=== PATIENT | male | born 1950 | race Caucasian/White ===

== ENCOUNTER 2018-08-18 22:23 | Emergency (ER) | payer BC ==
[2018-08-18] MEDS ORDERED: Albuterol/Ipratropium Neb 3 ML AERS HHN ONE ×2 (22:55→23:03)
--- NOTE | 2018-08-18 23:01 | ED Physician Chart ---
ED Chief Complaint/HPI - Patient Information Date Seen:: 08/18/18 Time Seen:: 22:45 Chief Complaint:: cough History of Present Illness:: Condition developed nonproductive cough earlier today. He's had chest congestion for about 2 months. No fever. Shortness of breath started about 1 hour ago. Patient had a 5 hour flight from [place] [employer] 6 days ago. Patient denies any leg or thigh pain. Patient receive influenza vaccination this season. Allergies:: Allergies Allergy/AdvReac Type Severity Reaction Status Date / Time No Known Allergies Allergy Verified 08/18/18 22:33 Vitals:: Vital Signs - 8 hr 08/18/18 22:35 Temp 97.3 F HR 89 RR 19 BP 135/74 O2 Sat % 95 Historian:: Patient ED Review of Systems - Review of Systems General/Constitutional: No fever, No chills, No weight loss, No weakness, No diaphoresis, No edema, No loss of appetite Skin: No skin lesions, No rash, No bruising Head: No headache, No light-headedness Eyes: No loss of vision, No pain, No diplopia ENT: No earache, No nasal drainage, No sore throat, No tinnitus Neck: No neck pain, No swelling, No thyromegaly, No stiffness, No mass noted Cardio Vascular: No chest pain, No palpitations, No PND, No orthopnea, No edema Pulmonary: Cough, No sputum, No wheezing GI: No nausea, No vomiting, No diarrhea, No pain, No melena, No hematochezia, No constipation, No hematemesis G/U: No dysuria, No frequency, No hematuria Musculoskeletal: No bone or joint pain, No back pain, No muscle pain Endocrine: No polyuria, No polydipsia Psychiatric: No prior psych history, No depression, No anxiety, No suicidal ideation Hematopoietic: No bruising, No lymphadenopathy Allergic/Immuno: No urticaria, No angioedema Neurological: No syncope, No focal symptoms, No weakness, No paresthesia, No headache, No seizure, No dizziness, No confusion, No vertigo ED Past Medical History - Past Medical History Past Medical History: No significant medical hx Family History: None Social History: Alcohol, Other (quit smoking 20 years ago; occasional alcohol consumption) Surgical History: None Psychiatricy History: None Medication: Reviewed Family Medical History - Family Member Daughter Living Status: Still Living ED Physical Exam - Physical Examination General/Constitutional: Awake, Well-developed, well-nourished, Alert, No distress, GCS 15, Non-toxic appearing, Ambulatory Head: Atraumatic Eyes: Lids, conjuctiva normal, PERRL Skin: Nl inspection, No rash ENMT: External ears, nose nl, Nasal exam nl, Lips, teeth, gums nl, Oropharynx nl , Tonsils nl Other ENMT comments:: Left tympanic membrane clear; right ceruminosis Neck: No nuchal rigidity, No bruit, No mass Respiratory: Nl effort/Exclusion, Clear to Auscultation, No Wheeze/Rhonchi/Rales Cardio Vascular: RRR, No murmur, gallop, rubs, NL S1 S2 GI: No tenderness/rebounding/guarding, No organomegaly, No hernia, Normal BS's, Nondistended, No mass/bruits, No McBurney tenderness : No CVA tenderness Extremities: Normal digits & nails Neuro/Psych: No focal deficits ED Labs/Radiology/EKG Results - Lab Results Results: Laboratory Results WBC 12.4 Th/cmm (4.8-10.8) H 08/19/18 00:20 RBC 5.25 Mil/cmm (3.80-5.80) 08/19/18 00:20 Hgb 16.4 gm/dL (12-16) 08/19/18 00:20 Hct 48.4 % (41.0-60) 08/19/18 00:20 MCV 92.2 fl (80-99) 08/19/18 00:20 MCH 31.2 pg (27.0-31.0) H 08/19/18 00:20 MCHC Differential 33.9 pg (28.0-36.0) 08/19/18 00:20 RDW 12.8 % (11.5-20.0) 08/19/18 00:20 Plt Count 228 Th/cmm (150-400) 08/19/18 00:20 MPV 8.0 fl 08/19/18 00:20 Neutrophils % 68.9 % (40.0-80.0) 08/19/18 00:20 Lymphocytes % 19.3 % (20.0-50.0) L 08/19/18 00:20 Monocytes % 8.9 % (2.0-10.0) 08/19/18 00:20 Eosinophils % 2.4 % (0.0-5.0) 08/19/18 00:20 Basophils % 0.5 % (0.0-2.0) 08/19/18 00:20 PT 9.9 SECONDS (9.5-11.5) 08/19/18 00:20 INR 0.95 (0.5-1.4) 08/19/18 00:20 PTT (Actin FS) 29.3 SECONDS (26.0-38.0) 08/19/18 00:20 Sodium 139 mEq/L (136-145) 08/19/18 00:20 Potassium 4.5 mEq/L (3.5-5.1) 08/19/18 00:20 Chloride 105 mEq/L (98-107) 08/19/18 00:20 Carbon Dioxide 23.8 mEq/L (21.0-31.0) 08/19/18 00:20 Anion Gap 14.7 (7.0-16.0) 08/19/18 00:20 BUN 22 mg/dL (7-25) 08/19/18 00:20 Creatinine 1.1 mg/dL (0.7-1.3) 08/19/18 00:20 Est GFR ( Amer) > 60.0 ml/min (>90) 08/19/18 00:20 Est GFR (Non-Af Amer) > 60.0 ml/min 08/19/18 00:20 BUN/Creatinine Ratio 20.0 08/19/18 00:20 Glucose 110 mg/dL (70-105) H 08/19/18 00:20 Calcium 9.4 mg/dL (8.6-10.3) 08/19/18 00:20 Troponin I 0.01 ng/mL (0.01-0.05) 08/19/18 00:20 Influenza A (Rapid) NEG FOR INF A 08/18/18 23:30 Influenza B (Rapid) NEG FOR INF B 08/18/18 23:30 - Radiology Results Results: Chest x-ray normal - EKG Interpretations Rate & Rhythm: normal sinus rhythm with a rate of 87 Stollings: left Comments:: Left bundle-branch block ED Assessment - Assessment General Assessment: Auscultation of the chest at about 0015 ED Septic Shock - . Is Septic Shock (SBP<90, OR Lactate>4 mmol\L) present?: No - <6hrs of presentation: Vital Signs: Vital Signs - 8 hr 08/18/18 22:35 Temp 97.3 F HR 89 RR 19 BP 135/74 O2 Sat % 95 ED Reassessment (Disposition) - Reassessment Reassessment:: CT angiogram of the chest showed no evidence of pulmonary embolus. 9 mm pulmonary nodule noted within the superior aspect of the right lower lobe which needs follow-up Reassessment Condition:: Improved - Diagnosis Diagnosis:: Acute viral bronchitis; viral syndrome - Aftercare/Follow up Instructions Aftercare/Follow-Up Instructions:: Refer to Discharge Instructions - Patient Disposition Discharge/Transfer:: Home Condition at Disposition:: Stable, Improved
[2018-08-19 00:14] LABS: INF A SCREEN NEG FOR INF A; INF B SCREEN NEG FOR INF B
[2018-08-19 00:28] LABS: % BASOPHILS 0.5 % (0.0-2.0); % EOSINOPHILS 2.4 % (0.0-5.0); % LYMPHOCYTES 19.3 % (20.0-50.0); % MONOCYTES 8.9 % (2.0-10.0); % NEUTROPHILS 68.9 % (40.0-80.0); BASOPHILE ABSOLUTE 0.1 Th/cumm (0-0.2); EOSINOPHILE ABSOLUTE 0.3 Th/cmm (0.1-0.4); HEMATOCRIT 48.4 % (41.0-60); HEMOGLOBIN 16.4 gm/dL (12-16); LYMPHOCYTE ABSOLUTE 2.4 Th/cmm (1.5-3.0); MEAN CELL VOLUME 92.2 fl (80-99); MEAN CORPUSCULAR HEMOGLOBIN 31.2 pg (27.0-31.0); MEAN CORPUSCULAR HGB CONC 33.9 pg (28.0-36.0); MONOCYTE ABSOLUTE 1.1 Th/cmm (0.3-1.0); NEUTROPHILE ABSOLUTE 8.5 Th/cmm (1.8-8.0); PLATELET COUNT 228 Th/cmm (150-400); RED BLOOD COUNT 5.25 Mil/cmm (3.80-5.80); RED CELL DISTRIBUTION WIDTH 12.8 % (11.5-20.0); WHITE BLOOD COUNT 12.4 Th/cmm (4.8-10.8)
[2018-08-19 00:41] LABS: ANION GAP 14.7 (7.0-16.0); BUN - UREA NITROGEN 22 mg/dL (7-25); CALCIUM SERUM 9.4 mg/dL (8.6-10.3); CARBON DIOXIDE 23.8 mEq/L (21.0-31.0); CHLORIDE 105 mEq/L (98-107); CREATININE - SERUM 1.1 mg/dL (0.7-1.3); GFR AFRICAN-AMERICAN > 60.0 ml/min (>90); GFR NON AFRICAN-AMERICAN > 60.0 ml/min; GLUCOSE 110 mg/dL (70-105); POTASSIUM SERUM 4.5 mEq/L (3.5-5.1); SODIUM SERUM 139 mEq/L (136-145)
[2018-08-19 01:16] LABS: INR 0.95 (0.5-1.4); PROTHROMBIN TIME (TEST) 9.9 SECONDS (9.5-11.5)
[2018-08-19] MEDS ORDERED: IOHEXOL 350mgI/mL 100mL Bottle IVP ONE (02:13)
--- NOTE | 2018-08-19 08:51 | Diagnostic Imaging Report ---
CT angiogram of the chest with intravenous contrast (CTA) HISTORY: Shortness of breath Total DLP equals 361 CTDI equals 22.5 Axial sections were obtained from a level above the clavicles down to level below the diaphragm following administration of intravenous contrast. Somewhat suboptimal opacification of the pulmonary arteries. No obvious intraluminal filling defects seen within the main, right, or left pulmonary arteries. No definite evidence of pulmonary embolism. The heart size is normal. Several normal-sized lymph nodes are seen within the mediastinum. The hilar regions are unremarkable. No pleural fluid is seen. There is an approximate 9 mm nodule within the periphery of the right lower lobe near the pleural surface. No associated calcification. This is indeterminate. A follow-up CT scan in 4 months recommended for further monitoring. IMPRESSION: 1. No acute abnormalities. No evidence of pulmonary embolism. 2. 9 mm pulmonary nodule within the periphery of the right lower lobe. This is indeterminate. A follow-up CT scan in 4 months advised for further monitoring and follow-up.
--- NOTE | 2018-08-19 08:56 | Diagnostic Imaging Report ---
Portable chest x-ray History: Cough Allowing for portable technique the heart size is normal. No focal pulmonary parenchymal processes. No hilar or mediastinal abnormalities. Impression: No acute abnormalities.
== END 2018-08-19 03:25 | disposition home or self-care (01) ==
LOC: ER 22:23
DX: J20.8 Acute bronchitis due to other specified organisms (principal); B34.9 Viral infection, unspecified; Z87.891 Personal history of nicotine dependence
CPT/HCPCS: 99284; 94640; 93005; 71045; 84484; 36415; 87804 ×2; 85025; 85610; 85730; 80048; 71275; Q9967